=== PATIENT | male | born 1945 | race Caucasian/White ===

== ENCOUNTER 2018-09-18 11:10 | Day surgery (SDC) | payer OTHER, MEDICAID ==
[~2018-09-18] VITALS: Ht 168.9 cm; Wt 45.2 kg
[2018-09-18 11:28] VITALS: BP 131/91
[2018-09-18] MEDS ORDERED: LACTATED RINGERS 1,000 ML IV SCH (11:33)
[2018-09-18] MEDS ORDERED: METH5SYR PO (11:44)
[2018-09-18] MEDS ORDERED: AMLO-150 PO (11:44)
[2018-09-18] MEDS ORDERED: CLON1PAT2 TD (11:44)
[2018-09-18] MEDS ORDERED: POLY17PO5 PO (11:44)
[2018-09-18] MEDS ORDERED: PLEASE ENTER ALLERGIES MC SCH (12:00)
[2018-09-18] MEDS ORDERED: PROPOFOL 10 MG/ML, 20ML ONE ×2 (14:03→14:04)
[2018-09-18] MEDS ORDERED: SUCCINYLCHOLINE 20 MG/ML, 10ML ONE (14:05)
[2018-09-18] MEDS ORDERED: ROCURONIUM 10MG/ML,5ML ONE (14:05)
[2018-09-18] MEDS ORDERED: METOPROLOL 1 MG/ML, 5ML IV PRN (14:30)
[2018-09-18] MEDS ORDERED: METOPROLOL 1 MG/ML, 5ML ONE (14:31)
[2018-09-18] MEDS ORDERED: hydrALAzine 20 MG/ML, 1ML ONE (15:15)
[2018-09-18] MEDS ORDERED: hydrALAzine 20 MG/ML, 1ML IV PRN (15:30)
[2018-09-18] MEDS ORDERED: FENTANYL PF 100 MCG/2ML ONE (15:47)
[2018-09-18] MEDS ORDERED: FENTANYL PF 100 MCG/2ML IV PRN (16:00)
[2018-09-18] MEDS ORDERED: OMNIPAQUE 350 MG/ML, 50 ML BOTTLE ONE (17:44)
== END 2018-09-18 16:50 | disposition home or self-care (01) ==
LOC: OUT 11:10
PROVIDERS: ATTEND Internal Medicine Gastroenterology
DX: C15.4 Malignant neoplasm of middle third of esophagus (principal); K22.2 Esophageal obstruction; I10 Essential (primary) hypertension; Z86.19 Personal history of other infectious and parasitic diseases; Z98.890 Other specified postprocedural states; Z87.891 Personal history of nicotine dependence
CPT/HCPCS: 43201; 43212; 71045; 74360; 93005; A4648; C1769; C1876; J0330; J0360; J2704; J3010; J7120; Q9967; 76000